=== PATIENT | male | born 1970 | race Caucasian/White ===

== ENCOUNTER 2016-07-05 11:31 | Emergency (ER) | payer MEDICAID ==
[2016-07-05 12:23] LABS: ALBUMIN 3.9 g/dL (3.4-5.0); ALKALINE PHOSPHATASE 81 U/L (46-116); ALT (SGPT) 436 U/L (10-68); BILIRUBIN - TOTAL 1.25 mg/dL (0.2-1.3); CALC OSMOLALITY 287 mosm/kg (275-300); CALCIUM 8.4 mg/dL (8.5-10.1); CARBON DIOXIDE 31.1 mmol/L (21.0-32.0); CHLORIDE - SERUM 105 mmol/L (98-107); GLUCOSE 138 mg/dL (74-106); POTASSIUM - SERUM 3.6 mmol/L (3.5-5.1); PROTEIN - SERUM 7.7 g/dL (6.4-8.2); SODIUM 144 mmol/L (136-145); UREA NITROGEN 9 mg/dL (7-18); eGFR NON AFRICAN AMERICAN 85 mL/min (90-120)
[2016-07-05 12:25] LABS: BASOPHILS 0.2 % (0.0-2.0); EOSINOPHILS 0.8 % (0-7); HEMATOCRIT 44.9 % (42.0-54.0); HEMOGLOBIN 15.3 g/dL (13.5-17.5); IMMATURE GRANULOCYTES 0.4 % (0-5); MCHC 34.1 g/dL (31.0-37.0); MONOCYTES 10.5 % (2-11); NEUTROPHILS 45.1 % (40-80); PLATELET COUNT 205 10x3/uL (130-400); RBC 4.63 10x6/uL (4.20-6.10); RDW 15.2 % (11.5-14.5); WBC 4.9 10x3/uL (4.8-10.8)
[2016-07-05 13:03] LABS: APPEARANCE CLEAR (CLEAR); BILIRUBIN NEGATIVE (NEGATIVE); COLOR YELLOW (YELLOW); GLUCOSE NEGATIVE (NEGATIVE); KETONE NEGATIVE (NEGATIVE); LEUKOCYTE ESTERASE NEGATIVE (NEGATIVE); NITRITE NEGATIVE (NEGATIVE); PROTEIN NEGATIVE (NEGATIVE); UROBILINOGEN NORMAL (NORMAL)
[2016-07-05 13:12] LABS: UDS - AMPHET NEGATIVE QUAL (NEGATIVE); UDS - BARB NEGATIVE QUAL (NEGATIVE); UDS - BENZO NEGATIVE QUAL (NEGATIVE); UDS - COCAINE NEGATIVE QUAL (NEGATIVE); UDS - METH NEGATIVE QUAL (NEGATIVE); UDS - OPIATE NEGATIVE QUAL (NEGATIVE); UDS - PCP NEGATIVE QUAL (NEGATIVE); UDS - THC NEGATIVE QUAL (NEGATIVE)
[2016-09-24 09:36] VITALS: BMI 32.9
== END 2016-07-05 16:39 | disposition home or self-care (01) ==
LOC: D.ER 11:31
PROVIDERS: Emergency Medicine
DX: F32.9 Major depressive disorder, single episode, unspecified (principal); F10.129 Alcohol abuse with intoxication, unspecified; F12.10 Cannabis abuse, uncomplicated; F17.200 Nicotine dependence, unspecified, uncomplicated

== ENCOUNTER 2016-07-30 17:15 | Emergency (ER) | payer MEDICAID ==
[2016-07-30 18:11] LABS: BASOPHILS 0.2 % (0.0-2.0); EOSINOPHILS 0.2 % (0-7); HEMATOCRIT 45.1 % (42.0-54.0); HEMOGLOBIN 15.3 g/dL (13.5-17.5); IMMATURE GRANULOCYTES 0.2 % (0-5); LYMPHOCYTES 35.6 % (15-50); MCHC 33.9 g/dL (31.0-37.0); MCV 97.4 fL (80.0-100.0); MEAN PLATELET VOLUME 10.3 fL (7.4-10.4); MONOCYTES 8.1 % (2-11); NEUTROPHILS 55.7 % (40-80); RBC 4.63 10x6/uL (4.20-6.10); RDW 14.9 % (11.5-14.5); WBC 5.2 10x3/uL (4.8-10.8)
[2016-07-30 18:13] LABS: PLATELET COUNT 119 10x3/uL (130-400)
[2016-07-30 18:28] LABS: ALBUMIN 4.1 g/dL (3.4-5.0); ALKALINE PHOSPHATASE 73 U/L (46-116); ALT (SGPT) 202 U/L (10-68); BILIRUBIN - TOTAL 0.83 mg/dL (0.2-1.3); CALC OSMOLALITY 290 mosm/kg (275-300); CARBON DIOXIDE 29.1 mmol/L (21.0-32.0); CHLORIDE - SERUM 103 mmol/L (98-107); CREATININE - SERUM 1.1 mg/dL (0.6-1.3); GLUCOSE 114 mg/dL (74-106); POTASSIUM - SERUM 3.5 mmol/L (3.5-5.1); PROTEIN - SERUM 7.4 g/dL (6.4-8.2); SODIUM 146 mmol/L (136-145); UREA NITROGEN 10 mg/dL (7-18); eGFR NON AFRICAN AMERICAN 76 mL/min (90-120)
[2016-07-30 18:30] LABS: MAGNESIUM - SERUM 1.8 mg/dL (1.8-2.4)
[2016-07-30 18:44] LABS: INR 1.11 (0.85-1.17); PROTIME 14.1 SECONDS (11.6-15.0)
[2016-09-24 09:36] VITALS: BMI 32.9
== END 2016-07-31 05:52 | disposition home or self-care (01) ==
LOC: D.ER 17:15
PROVIDERS: Emergency Medicine
DX: F10.10 Alcohol abuse, uncomplicated (principal)

== ENCOUNTER 2016-09-22 13:18 | Inpatient (IN) | payer MEDICAID ==
[~2016-09-22] VITALS: Ht 170.2 cm; Wt 97.3 kg
[2016-09-22 13:36] LABS: UDS - AMPHET NEGATIVE QUAL (NEGATIVE); UDS - BARB NEGATIVE QUAL (NEGATIVE); UDS - BENZO POSITIVE QUAL (NEGATIVE); UDS - COCAINE NEGATIVE QUAL (NEGATIVE); UDS - METH NEGATIVE QUAL (NEGATIVE); UDS - OPIATE NEGATIVE QUAL (NEGATIVE); UDS - PCP NEGATIVE QUAL (NEGATIVE); UDS - THC NEGATIVE QUAL (NEGATIVE)
[2016-09-22 13:50] LABS: BASOPHILS 0 % (0.0-2.0); EOSINOPHILS 0 % (0-7); HEMATOCRIT 53.6 % (42.0-54.0); HEMOGLOBIN 18.8 g/dL (13.5-17.5); IMMATURE GRANULOCYTES 0.3 % (0-5); MCH 34.9 pg (26.0-34.0); MCHC 35.1 g/dL (31.0-37.0); MCV 99.4 fL (80.0-100.0); MONOCYTES 6.8 % (2-11); NEUTROPHILS 86.9 % (40-80); RBC 5.39 10x6/uL (4.20-6.10); RDW 14.2 % (11.5-14.5); WBC 11.5 10x3/uL (4.8-10.8)
[2016-09-22 13:51] LABS: PLATELET COUNT 243 10x3/uL (130-400)
[2016-09-22 14:08] LABS: ALBUMIN 3.5 g/dL (3.4-5.0); ANION GAP 27.5 mmol/L (8-16); BILIRUBIN - TOTAL 1.28 mg/dL (0.2-1.3); CALCIUM 8.6 mg/dL (8.5-10.1); CARBON DIOXIDE 19.6 mmol/L (21.0-32.0); CREATININE - SERUM 1.8 mg/dL (0.6-1.3); MAGNESIUM - SERUM 1.9 mg/dL (1.8-2.4); POTASSIUM - SERUM 5.1 mmol/L (3.5-5.1)
[2016-09-22 14:30] LABS: APPEARANCE SLT CLOUDY (CLEAR); BACTERIA FEW /hpf (NONE SEEN); BILIRUBIN NEGATIVE (NEGATIVE); COLOR BROWN (YELLOW); EPITHELIAL CELLS 0-5 /hpf (0-5); GLUCOSE NEGATIVE (NEGATIVE); KETONE NEGATIVE (NEGATIVE); LEUKOCYTE ESTERASE TRACE (NEGATIVE); MUCUS <1+ /lpf (NONE SEEN); NITRITE NEGATIVE (NEGATIVE); PROTEIN 3+ mg/dL (NEGATIVE); SPECIFIC GRAVITY 1.025 (1.005-1.020); WHITE CELLS - URINE OCC /hpf (0-5)
--- NOTE | 2016-09-22 16:52 | NUR ---
RECEIVED TO [facility] ROOM 2. HE IS AWAKE AND ALERT, WATCHING TV. DENIES NEEDS. VSS
--- NOTE | 2016-09-22 17:14 | NUR ---
PATIENT OFF THE FLOOR TO MEDICAL IMAGING.
[2016-09-22 17:58] LABS: TROPONIN-I 0.035 ng/mL (0.000-0.060)
[2016-09-22 18:00] LABS: CKMB 729.6 U/L (0.0-3.6)
[2016-09-23] VITALS (16 sets, daily range): BP systolic 95–144; BP diastolic 48–101; BMI 31.4
[2016-09-23 00:10] LABS: TROPONIN-I 0.053 ng/mL (0.000-0.060)
[2016-09-23 01:35] LABS: CKMB 439.8 U/L (0.0-3.6); CREATINE KINASE 70933 UL (21-232)
[2016-09-23 02:11] LABS: CREATINE KINASE 97845 UL (21-232)
[2016-09-23 04:22] LABS: BASOPHILS 0.1 % (0.0-2.0); EOSINOPHILS 0 % (0-7); HEMATOCRIT 43.4 % (42.0-54.0); IMMATURE GRANULOCYTES 0.3 % (0-5); LYMPHOCYTES 16.2 % (15-50); MCH 33.3 pg (26.0-34.0); MCHC 33.9 g/dL (31.0-37.0); MCV 98.4 fL (80.0-100.0); MEAN PLATELET VOLUME 10.1 fL (7.4-10.4); MONOCYTES 9.3 % (2-11); NEUTROPHILS 74.1 % (40-80); RBC 4.41 10x6/uL (4.20-6.10); RDW 14.2 % (11.5-14.5); WBC 9.5 10x3/uL (4.8-10.8)
[2016-09-23 04:40] LABS: HEMOGLOBIN 14.7 g/dL (13.5-17.5); PLATELET COUNT 144 10x3/uL (130-400)
[2016-09-23 04:42] LABS: APTT 28.9 SECONDS (22.8-39.4); INR 1.11 (0.85-1.17); PROTIME 14.1 SECONDS (11.6-15.0)
[2016-09-23 05:04] LABS: ALKALINE PHOSPHATASE 74 U/L (46-116); ALT (SGPT) 474 U/L (10-68); BILIRUBIN - TOTAL 1.77 mg/dL (0.2-1.3); CHLORIDE - SERUM 99 mmol/L (98-107); CKMB 251.5 U/L (0.0-3.6); PROTEIN - SERUM 6.1 g/dL (6.4-8.2); SODIUM 136 mmol/L (136-145); TROPONIN-I 0.047 ng/mL (0.000-0.060); eGFR NON AFRICAN AMERICAN 38 mL/min (90-120)
[2016-09-23 05:10] LABS: ALBUMIN 2.6 g/dL (3.4-5.0); CALC OSMOLALITY 277 mosm/kg (275-300); CARBON DIOXIDE 25.3 mmol/L (21.0-32.0); CREATINE KINASE 57241 UL (21-232); GLUCOSE 123 mg/dL (74-106); POTASSIUM - SERUM 4.2 mmol/L (3.5-5.1); UREA NITROGEN 26 mg/dL (7-18)
--- NOTE | 2016-09-23 09:18 | NUR ---
Received patient from ER via stretcher. Patient self transferred to bed. Patient currently having tremors, states pain is an 8/10 bilateral legs. He states he can move his legs which is better than the past few days but that his feet feel like jello. Sinus rhythm rate of 88 on CM, afebrile, BP elevated. 99% on room air. When asked about his suicidal statement made with ERNIE Moyer, he stated that he did state he wanted to . I asked if he currently felt like that and he said yes. When asked why, he stated life in general and the pain. I asked if he wasnt in pain would he still want to and he stated he didnt know. Patient denies ever attempting suicide in the past. Denies currently having a plan for suicide. I requested patient to make a verbal contract with me that he will not attempt suicide while here in the hospital. Patient stated "I will not try to harm myself while here". Dominga Cintron RN in room and witnessed. Patient set up with call button, oriented to room and ICU. Informed that he is on suicidal precautions and that he cannot have his belongings in his room, he verbalized understanding. Breakfast tray delivered, silverware removed from tray. Patient set up with tray. Requesting Librium. Working with admissions to have him listed as inpatient instead of observation.
--- NOTE | 2016-09-23 09:31 | NUR ---
Spoke to in unit. Patient okayed for tramadol for pain, Librium q 1hour order verified. Psych consult okayed.
--- NOTE | 2016-09-23 11:09 | NUR ---
Is the patient Alert and Oriented? Yes 0 * PCP DOES NOT HAVE ONE 0 * Pharmacy HAS GOTTEN MEDS AT [facility] IN [place] IN THE PAST 0 * Preadmission Environment Homeless 0 * ADLs Independent 0 * List name and contact numbers for known caregivers / representatives who currently or will assist patient after discharge: MOTHER: RICHIE AGUERO DOES NOT KNOW PHONE NUMBER 0 * Additional services required to return to the preadmission environment? Yes 0 * Can the patient safely return to the preadmission environment? No 0 * Has this patient been hospitalized within the prior 30 days at any hospital? No PATIENT [place]. HE IS HOMELESS AND DOES NOT HAVE A JOB. PATIENT STATES HE DOES NOT HAVE A PCP. HE HAS GOTTEN MEDICATION AT [facility] IN [place] IN THE PAST WITH FAMILY HELP. PATIENT STATES HIS MOTHER IS RICHIE AGUERO AND LIVES IN [place] BUT HE DOES NOT KNOW HER PHONE NUMBER. HE HAS NOT TALKED TO HER IN A LONG TIME. PATIENT DENIES EVER HAVING HOME HEALTH. HE DENIES USE OF ANY EQUIPMENT. PATIENT STATES HE IS STILL HAVING THOUGHTS OF HURTING HIMSELF. HE STATES THAT HE CAN SOMETIMES STAY AT THE [facility] [place] BUT ONLY 10 DAYS PER MONTH. HE DOES GET MEALS AT THE [facility] [employer] AND [facility]. PATIENT DENIES EVER BEING IN A PSYCH FACILITY. CM TO FOLLOW TO FIND PLACEMENT AT DISCHARGE.
--- NOTE | 2016-09-23 11:26 | NUR ---
Patient had complete bath while up to bedside commode. Paper scrubs given to patient. Patient c/o severe pain bilateral feet. Socks removed, feet are swollen, discolored and patient unable to bear weight on them. Patient assited back to bed. Set up with call light. Dr.Carrington oscar and informed of patients feed and need for pain medication. Pain medication and bilateral venous study ordered. Pain medication administered per order.
--- NOTE | 2016-09-23 11:29 | NUR ---
Gillian with US here to do study.
--- NOTE | 2016-09-23 14:43 | NUR ---
Patient requested next dose of Librium and pain medication, administered per EMAR.
--- NOTE | 2016-09-23 15:30 | NUR ---
Patient becoming increasinly anxious, remains cooperative.
--- NOTE | 2016-09-23 17:08 | NUR ---
Pagesammie Moyer APRN regarding patient becoming increasinly aggitated and anxious. No new orders received.
--- NOTE | 2016-09-23 18:53 | NUR ---
Patient sleeping at this time.
--- NOTE | 2016-09-23 19:00 | NUR ---
REPORT RECEIVED AND ASSESSMENT COMPLETED. SEE FLOWSHEET FOR FULL DETIALS. PT HAS SUICIDAL IDEATION. NO PLAN TO HARM SELF AT THE MOMENT. MADE VERBAL CONTRACT TO AVOID SELF HARM THROUGH SHIFT WITNESSED BY MYSELF AND HILARY. PT HAS BILAT DVT. PULSES EASILY HEARD WITH DOPPLER. PT STATES HE IS AN ALCOHOLIC AND DRINKS A 5TH OF VODKA A DAY. HAS TREMORS IN UPPER EXTREMETIES. VSS. WILL CONTINUE TO MONITOR
--- NOTE | 2016-09-23 21:00 | NUR ---
2100 B/P MED HELD. DURING INITIAL ADMINISTRATION BP WAS 160'S SYSTOLIC. HAS BEEN IN LOW 100'S AND REMAINS THERE NOW. PT STATES HE IS BEGINNING TO SEE IMAGES SCROLLING ACROSS THE WALL. VSS. WILL CONTINUE TO MONITOR.
--- NOTE | 2016-09-23 23:21 | NUR ---
REASSESSMENT COMPLETED. SEE FLOWSHEET FOR FULL DETAILS. VAA. WILL CONTINUE TO MONITOR.
[2016-09-24] VITALS (24 sets, daily range): BP systolic 97–135; BP diastolic 60–101; Ht 170.2 cm; Wt 97.3 kg
--- NOTE | 2016-09-24 01:21 | NUR ---
PT STATES HALLUCINATIONS HAVE NOT GOTTEN WORSE. DESCIBED IT IMAGES OF ANIMALS IN ROOM. NO CHANGES AT THIS TIME. VSS. WILL CONTINUE TO MONITOR
--- NOTE | 2016-09-24 02:59 | NUR ---
REASSESSMENT COMPLETED. PT URINE NO LONGER COLA COLORED. NOW YELLOW. PT STILL HALLUCINATING. NO OTHER CHANGES AT THIS TIME. VSS. WILL CONTINUE TO MONITOR.
[2016-09-24 04:52] LABS: BASOPHILS 0 % (0.0-2.0); EOSINOPHILS 0.3 % (0-7); HEMATOCRIT 38.4 % (42.0-54.0); HEMOGLOBIN 13.1 g/dL (13.5-17.5); IMMATURE GRANULOCYTES 0.2 % (0-5); LYMPHOCYTES 19.3 % (15-50); MCH 33.5 pg (26.0-34.0); MCHC 34.1 g/dL (31.0-37.0); MCV 98.2 fL (80.0-100.0); MEAN PLATELET VOLUME 10.2 fL (7.4-10.4); MONOCYTES 6.7 % (2-11); NEUTROPHILS 73.5 % (40-80); RBC 3.91 10x6/uL (4.20-6.10); RDW 14.2 % (11.5-14.5); WBC 8.8 10x3/uL (4.8-10.8)
[2016-09-24 04:57] LABS: PLATELET COUNT 108 10x3/uL (130-400)
--- NOTE | 2016-09-24 05:00 | NUR ---
NO CHANGED IN STATUS AT THIS TIME. VSS. WILL CONTINUE TO MONITOR
[2016-09-24 05:23] LABS: APTT 45.8 SECONDS (22.8-39.4); INR 1.56 (0.85-1.17); PROTIME 18.6 SECONDS (11.6-15.0)
[2016-09-24 05:29] LABS: ALBUMIN 2.4 g/dL (3.4-5.0); ALKALINE PHOSPHATASE 64 U/L (46-116); ALT (SGPT) 372 U/L (10-68); C-REACTIVE PROTEIN 9.2 mg/dL (0.0-0.9); CALC OSMOLALITY 270 mosm/kg (275-300); CALCIUM 7.7 mg/dL (8.5-10.1); CARBON DIOXIDE 24.6 mmol/L (21.0-32.0); CHLORIDE - SERUM 98 mmol/L (98-107); CREATININE - SERUM 2.5 mg/dL (0.6-1.3); GLUCOSE 90 mg/dL (74-106); PROTEIN - SERUM 5.7 g/dL (6.4-8.2); SODIUM 132 mmol/L (136-145); TROPONIN-I < 0.017 ng/mL (0.000-0.060); UREA NITROGEN 30 mg/dL (7-18); eGFR NON AFRICAN AMERICAN 30 mL/min (90-120)
[2016-09-24 05:38] LABS: CREATINE KINASE 21490 UL (21-232); POTASSIUM - SERUM 3.3 mmol/L (3.5-5.1)
[2016-09-24 09:17] LABS: HEPATITIS C ANTIBODY <0.1 (0.0-0.9)
--- NOTE | 2016-09-24 19:30 | NUR ---
Assessment complete. See flowsheet. Pt resting quietly, self-positioned to left side with no s/s pain or distress. Pt awakens easily to verbal stimulation with no neuro deficits noted. Respirations even and unlabored. HR SR. Pupils size 3 bilaterally ERRLA. Lung sounds clear to auscultation. All peripheral pulses +2 with capillary refill <3 seconds. Lower extremities bilaterally +2 pitting edema and tender to touch. Left A/C PIV site CDI no s/s infection or infiltration with MVI infusing @ 125cc/hr and completed. IV saline locked. BS present to all quadrants. Urinal within pt reach. Pt denies needs at this time and continues to rest. Call light and bedside table within pt reach. CPOC.
--- NOTE | 2016-09-24 21:30 | NUR ---
Pt resting quietly with VSS. No s/s pain or distress and allowed to continue resting undisturbed. Call light and bedside table remain within reach. CPOC.
--- NOTE | 2016-09-24 22:23 | NUR ---
Pt urinals emptied of 900cc clear/yellow urine. Fresh ice water provided. Librium and ultram provided per request for pain "all over" rated 6 out of 10. See MAR. Pt continues to self-position for comfort. VSS. Pt denies further needs at this time. Arms and heels bridged. Call light and bedside table remain within pt reach. CPOC.
--- NOTE | 2016-09-24 23:30 | NUR ---
Reassessment complete. See flowsheet. Pt awake and watching television with VSS. NO c/o pain or distress. O2 RA. Lung sounds remain clear to all houser. HR SR with S1S2 auscultated. All peripheral pulses +2 with capillary refill <3 seconds. Lower extremity edema persists. Pt c/o pain to touch. PIV site CDI saline locked. BS +. Urinal remains within pt reach. Pt denies current needs at this time and continues to self-position for comfort. Call light and bedside table remain within pt reach. CPOC.
[2016-09-25] VITALS (23 sets, daily range): BP systolic 102–148; BP diastolic 55–100
--- NOTE | 2016-09-25 01:20 | NUR ---
Urinals emptied of 1200cc clear/yellow urine. Fresh ice water provided per request. Librium administered for pt c/o tremors. See MAR. Call light and bedside table remain within pt reach. CPOC.
--- NOTE | 2016-09-25 01:56 | NUR ---
Pt resting quietly with VSS. NO s/s pain or distress. call light and bedside table remain within pt reach. CPOC.
--- NOTE | 2016-09-25 03:30 | NUR ---
Reassessment complete. See flowsheet. Pt continues to self-position for comfort with no neuro changes to note. Pt denies pain at this time or further needs. NO changes to note. Call light and bedside table remain within pt reach. CPOC.
--- NOTE | 2016-09-25 05:30 | NUR ---
Urinals emptied of 1600cc clear, yellow urine. Pt provided with ice water per request.
[2016-09-25 05:48] LABS: BASOPHILS 0.1 % (0.0-2.0); EOSINOPHILS 0.6 % (0-7); HEMATOCRIT 36.7 % (42.0-54.0); HEMOGLOBIN 12.5 g/dL (13.5-17.5); IMMATURE GRANULOCYTES 0.2 % (0-5); LYMPHOCYTES 14.8 % (15-50); MCH 33.6 pg (26.0-34.0); MCHC 34.1 g/dL (31.0-37.0); MCV 98.7 fL (80.0-100.0); MEAN PLATELET VOLUME 10.6 fL (7.4-10.4); MONOCYTES 4.9 % (2-11); NEUTROPHILS 79.4 % (40-80); PLATELET COUNT 115 10x3/uL (130-400); RBC 3.72 10x6/uL (4.20-6.10); RDW 14.2 % (11.5-14.5); WBC 8.9 10x3/uL (4.8-10.8)
[2016-09-25 06:02] LABS: INR 1.54 (0.85-1.17); PROTIME 18.4 SECONDS (11.6-15.0)
[2016-09-25 06:03] LABS: APTT 53.8 SECONDS (22.8-39.4)
[2016-09-25 06:18] LABS: ALBUMIN 2.3 g/dL (3.4-5.0); ALKALINE PHOSPHATASE 58 U/L (46-116); ALT (SGPT) 302 U/L (10-68); CALC OSMOLALITY 276 mosm/kg (275-300); CALCIUM 7.8 mg/dL (8.5-10.1); CHLORIDE - SERUM 102 mmol/L (98-107); CKMB 13.2 U/L (0.0-3.6); GLUCOSE 85 mg/dL (74-106); POTASSIUM - SERUM 3.5 mmol/L (3.5-5.1); PROTEIN - SERUM 5.7 g/dL (6.4-8.2); SODIUM 137 mmol/L (136-145); UREA NITROGEN 23 mg/dL (7-18); eGFR NON AFRICAN AMERICAN 38 mL/min (90-120)
[2016-09-25 06:19] LABS: CREATINE KINASE 14879 UL (21-232)
--- NOTE | 2016-09-25 09:42 | CN ---
PATIENT NAME:SARAH AGUERO MEDICAL RECORD: [id number] : 68 LOCATION:[id number] ADMIT DATE: 09/23/16 ACCOUNT: [id number] CONSULTING PHYSICIAN: PRAVEENA SORTO III, MD REFERRING PHYSICIAN: MARSHA CONKLIN MD DATE OF CONSULTATION: 09/23/2016 FINDINGS: One of several lifetime psychiatric contacts for this 45-year-old white male. This patient carries a past history of major depressive disorder and alcohol abuse. He states that lately he has been drinking up to a fifth of vodka per day. He has chronic pain. He has a past history of HIV. The patient took an unknown quantity of pills he obtained from a friend in a suicide attempt. MENTAL STATUS: The patient admits to ongoing suicidal ideation and is equivocal about his own safety. On exam, the patient's mood is dysphoric. Affect is rather constricted. Speech is fairly fluent. Content of thought is positive for suicidal ideation. Sensorium relatively clear. The patient is currently undergoing withdrawal and receiving active treatment for this. DIAGNOSIS: Major depressive disorder -- recurrent, alcoholism. PLAN: When the patient is stable medically, would refer for inpatient psychiatric treatment. TRANSINT:[id number] Voice Confirmation ID: [id number] DOCUMENT ID: [id number] PRAVEENA SORTO III, MD at 0942 CC: [id number] DICTATION DATE: 09/23/16 1254 MECHANICAL ENGINEERING TEACHER: 09/23/16 1448 ADM IN [facility] [address] [place] [address]
--- NOTE | 2016-09-25 19:30 | NUR ---
Assessment complete. See flowsheet. Pt awake and watching television with VSS. Pt c/o pain to legs bilaterally. +1 pitting edema to lower extremities bilaterally with pain during movement. Dorsalis pedis pulses +2 bilaterally. Pt respirations even and unlabored. O2 RA. No neuro deficits noted. Pt calm and cooperative and moving upper extremities with 5/5 strength and lower extremities wih 4/5 strength. Lung sounds CTA. HR SR with S1S2 auscultated. Radial pulses +2 bilaterally. Left A/C PIV CDI no s/s infection or infiltration with MVI infusion finished and removed. PIV site saline locked. BS + to all quadrants. Urinal emptied of 900cc clear/yellow urine. Fresh ice water provided per pt request. Librium and Ultram given; see MAR. Pt self-positioned in bed for comfort. Temp 99.1F orally. Arms and heels rebridged. Call light and bedside table remain within pt reach. CPOC.
--- NOTE | 2016-09-25 21:30 | NUR ---
Pt resting with VSS. NO s/s pain or distress. Call light and bedside table remain within pt reach. CPOC.
--- NOTE | 2016-09-25 23:30 | NUR ---
Reassessment complete. See flowsheet. Pt resting and awakens easily to verbal stimulation with no neuro deficits to note. O2 RA. Lung sounds remain clear to auscultation. HR SR with S1S2 auscultated. All peripheral pulses +2 with cpaillary refill <3 seconds. PIV site remains CDI; saline locked with no s/s infection and IV site secure. BS +. Urinals within pt reach. Beverages on bedside table. Pt continues to self-position for comfort. No complaints or requests at this time. Call light and bedside table remain within pt reach. CPOC.
[2016-09-26] VITALS (14 sets, daily range): BP systolic 101–152; BP diastolic 47–100
--- NOTE | 2016-09-26 01:30 | NUR ---
Pt resting quietly with VSS. NO s/s pain or distress and allowed to continue resting undisturbed. Call light and bedside table remain within pt reach. CPOC.
--- NOTE | 2016-09-26 03:30 | NUR ---
Reassessment complete. See flowsheet. Urinals emptied of urine. Pt helped up with max assist to bedside toilet for large, brown BM approx 700cc. Linen change and pt self-bath completed. pt helped back to bed to self-position for comfort. No other changes to note. Fresh ice water provided. Pain medication administered. See MAR> Call light and bedside table placed within pt reach. CPOC.
--- NOTE | 2016-09-26 05:30 | NUR ---
Pt resting with VSS. Call light and bedside table remain within reach. CPOC.
[2016-09-26 05:52] LABS: BASOPHILS 0.2 % (0.0-2.0); EOSINOPHILS 1.3 % (0-7); HEMATOCRIT 39.7 % (42.0-54.0); HEMOGLOBIN 13.6 g/dL (13.5-17.5); IMMATURE GRANULOCYTES 0.5 % (0-5); LYMPHOCYTES 12.6 % (15-50); MCH 33.7 pg (26.0-34.0); MCHC 34.3 g/dL (31.0-37.0); MCV 98.5 fL (80.0-100.0); MEAN PLATELET VOLUME 10.3 fL (7.4-10.4); MONOCYTES 6.6 % (2-11); NEUTROPHILS 78.8 % (40-80); RBC 4.03 10x6/uL (4.20-6.10); RDW 14.3 % (11.5-14.5); WBC 10.9 10x3/uL (4.8-10.8)
[2016-09-26 05:54] LABS: INR 1.64 (0.85-1.17); PROTIME 19.4 SECONDS (11.6-15.0)
[2016-09-26 05:56] LABS: APTT 39.4 SECONDS (22.8-39.4); PLATELET COUNT 150 10x3/uL (130-400)
[2016-09-26 06:04] LABS: ALBUMIN 2.3 g/dL (3.4-5.0); ALKALINE PHOSPHATASE 56 U/L (46-116); ALT (SGPT) 271 U/L (10-68); BILIRUBIN - TOTAL 1.48 mg/dL (0.2-1.3); CALC OSMOLALITY 275 mosm/kg (275-300); CALCIUM 8.1 mg/dL (8.5-10.1); CARBON DIOXIDE 26.8 mmol/L (21.0-32.0); CHLORIDE - SERUM 102 mmol/L (98-107); CKMB 5.2 U/L (0.0-3.6); CREATININE - SERUM 1.6 mg/dL (0.6-1.3); GLUCOSE 97 mg/dL (74-106); POTASSIUM - SERUM 3.3 mmol/L (3.5-5.1); PROTEIN - SERUM 5.8 g/dL (6.4-8.2); SODIUM 137 mmol/L (136-145); UREA NITROGEN 18 mg/dL (7-18); eGFR NON AFRICAN AMERICAN 50 mL/min (90-120)
[2016-09-26 06:07] LABS: CREATINE KINASE 12138 UL (21-232); TROPONIN-I 0.017 ng/mL (0.000-0.060)
--- NOTE | 2016-09-26 11:00 | NUR ---
NO CHANGE NOTED
--- NOTE | 2016-09-26 15:00 | NUR ---
NO CHANGE NOTED
--- NOTE | 2016-09-26 19:45 | NUR ---
ASSESSMENT COMPLETE. S1S2. RR CLEAR; EQUAL NON LABORED. AAO. PT STATES STILL HAVING THOUGHTS ABOUT HARMING SELF; STATING IT IS BOTH RELATIONSHIP AND FINANCIAL AND FEELING ALONE. OFFERED TO TALK WITH PATIENT; REFUSED. SWELLING B/L TO LOWER EXTREMITIES; PT C/O PAIN. RADIAL AND PEDAL PULSES PALPATED. PERRLA. NSR SHOWING ON MONITOR. NO DISTRESS NOTED. PAPER GOWN IN PLACE. SALINE LOCK LEFT AC PIV. VSS. WILL CONTINUE TO MONITOR.
--- NOTE | 2016-09-26 20:12 | NUR ---
PT C/O OF PAIN IN LEGS AND BACK. C/O SWELLING IN LEGS. PEDAL PULSES +2. ULTRAM GIVEN PER ORDERS. SEE EMAR FOR DETAILS.
--- NOTE | 2016-09-26 23:15 | NUR ---
REASSESSMENT COMPLETE. NO CHANGES FROM PREVIOUS ASSESSMENT. CALL LIGHT IN REACH. VSS. NO DISTRESS NOTED. WILL CONTINUE TO MONITOR.
[2016-09-27 01:00] VITALS: BP 153/78
--- NOTE | 2016-09-27 01:15 | NUR ---
PT C/O PAIN IN LEGS AND BACK. ULTRAM GIVEN AND LIBRIUM GIVEN PER ORDERS. SEE EMAR FOR DETAILS. PEDAL PULSES PALPATED.
[2016-09-27 03:00] VITALS: BP 112/70
--- NOTE | 2016-09-27 03:05 | NUR ---
REASSESSMENT COMPLETE. NO CHANGES FROM PREVIOUS ASSESSMENT. SEE FLOW SHEET FOR DETAILS.
[2016-09-27 04:01] LABS: BASOPHILS 0.3 % (0.0-2.0); EOSINOPHILS 3.1 % (0-7); HEMATOCRIT 37.1 % (42.0-54.0); HEMOGLOBIN 12.6 g/dL (13.5-17.5); IMMATURE GRANULOCYTES 0.7 % (0-5); LYMPHOCYTES 21.1 % (15-50); MCH 33.3 pg (26.0-34.0); MCV 98.1 fL (80.0-100.0); MONOCYTES 12.5 % (2-11); NEUTROPHILS 62.3 % (40-80); PLATELET COUNT 163 10x3/uL (130-400); RBC 3.78 10x6/uL (4.20-6.10); RDW 14.4 % (11.5-14.5)
[2016-09-27 04:18] LABS: WBC 7.7 10x3/uL (4.8-10.8)
[2016-09-27 04:19] LABS: APTT 38.9 SECONDS (22.8-39.4); INR 1.34 (0.85-1.17); PROTIME 16.5 SECONDS (11.6-15.0)
[2016-09-27 04:37] LABS: ALBUMIN 2.2 g/dL (3.4-5.0); ALKALINE PHOSPHATASE 46 U/L (46-116); ALT (SGPT) 231 U/L (10-68); BILIRUBIN - TOTAL 1.21 mg/dL (0.2-1.3); C-REACTIVE PROTEIN 4.4 mg/dL (0.0-0.9); CALC OSMOLALITY 276 mosm/kg (275-300); CALCIUM 7.9 mg/dL (8.5-10.1); CHLORIDE - SERUM 102 mmol/L (98-107); CKMB 3.6 U/L (0.0-3.6); CREATINE KINASE 7694 UL (21-232); CREATININE - SERUM 1.3 mg/dL (0.6-1.3); GLUCOSE 104 mg/dL (74-106); POTASSIUM - SERUM 3.2 mmol/L (3.5-5.1); PROTEIN - SERUM 5.5 g/dL (6.4-8.2); SODIUM 138 mmol/L (136-145); UREA NITROGEN 15 mg/dL (7-18); eGFR NON AFRICAN AMERICAN 63 mL/min (90-120)
[2016-09-27 07:00] VITALS: BP 122/78
--- NOTE | 2016-09-27 09:12 | NUR ---
NUTRITION MONITORING & EVAL NURSING REPORTS PT WITH GOOD INTAKE REG DIET. RD FOLLOWING
[2016-09-27 18:21] VITALS: BP 97/59
[2016-09-27 19:00] VITALS: BP 97/59
--- NOTE | 2016-09-27 19:45 | NUR ---
ASSESSMENT COMPLETE. S1S2. AAO. SWELLING AND WEAKNESS NOTED TO LOWER EXTREMITIES. RR EQUAL NON LABORED. PT C/O PAIN 4/10 IN LEGS AND BACK. PT SITTING IN CHAIR. PT USES URINAL AND BEDSIDE COMMODE. PERRLA. LABELLING MACHINE OPERATOR STRENGTH EQUAL +5. FOLLOWS COMMANDS. VSS. NO DISTRESS NOTED. WILL CONTINUE TO MONITOR.
--- NOTE | 2016-09-27 21:30 | NUR ---
PT C/O PAIN 4/10 IN BACK AND LEGS. ULTRAM GIVEN PER ORDERS. SEE EMAR FOR DETAILS.
[2016-09-27 23:00] VITALS: BP 110/60
--- NOTE | 2016-09-27 23:15 | NUR ---
REASSESSMENT COMPLETE. NO CHANGES FROM PREVIOUS ASSESSMENT. CALL LIGHT IN REACH. PT IN BED; WATCHING TV. DENIES ANY NEEDS AT THIS TIME. WILL CONTINUE TO MONITOR.
[2016-09-28] VITALS (17 sets, daily range): BP systolic 94–119; BP diastolic 53–91
--- NOTE | 2016-09-28 01:10 | NUR ---
FLUSHED PIV RIGHT AC; PATENT.
--- NOTE | 2016-09-28 03:20 | NUR ---
REASSESSMENT COMPLETE. NO CHANGES FROM PREVIOUS ASSESSMENT. WILL CONTINUE TO MONITOR.
[2016-09-28 04:49] LABS: BASOPHILS 0.3 % (0.0-2.0); EOSINOPHILS 4.4 % (0-7); HEMATOCRIT 39.5 % (42.0-54.0); LYMPHOCYTES 28.9 % (15-50); MCH 32.7 pg (26.0-34.0); MCHC 32.9 g/dL (31.0-37.0); MCV 99.5 fL (80.0-100.0); MEAN PLATELET VOLUME 10.5 fL (7.4-10.4); MONOCYTES 12.9 % (2-11); NEUTROPHILS 52.5 % (40-80); RBC 3.97 10x6/uL (4.20-6.10); RDW 14.4 % (11.5-14.5); WBC 6.9 10x3/uL (4.8-10.8)
[2016-09-28 04:54] LABS: PLATELET COUNT 198 10x3/uL (130-400)
[2016-09-28 06:02] LABS: CALC OSMOLALITY 276 mosm/kg (275-300); CARBON DIOXIDE 31.3 mmol/L (21.0-32.0); CHLORIDE - SERUM 103 mmol/L (98-107); CKMB 2.5 U/L (0.0-3.6); CREATINE KINASE 4990 UL (21-232); CREATININE - SERUM 1.3 mg/dL (0.6-1.3); GLUCOSE 96 mg/dL (74-106); POTASSIUM - SERUM 3.2 mmol/L (3.5-5.1); SODIUM 138 mmol/L (136-145); UREA NITROGEN 14 mg/dL (7-18); eGFR NON AFRICAN AMERICAN 63 mL/min (90-120)
--- NOTE | 2016-09-28 11:49 | NUR ---
IV ACCESS-22 GAUGE INSERTED IN [place] FOR ACCESS. JENNIFER CORADO RN
--- NOTE | 2016-09-28 14:08 | NUR ---
0700 PT AWAKE ALERT AND ORIENTED X4, OBEYS COMMANDS WITH NO DEFICITS. PT COMPLAINTS OF PAIN "8/10" AT THIS TIME IN LEGS. WILL GIVE PRN MEDS ORDERED. NO SCDS ON PT DUE TO BILATERAL DVTS. NORMAL SINUS RHYTHM ON MONITOR. VITAL SIGNS STABLE.
--- NOTE | 2016-09-28 14:29 | NUR ---
0900 PT HAS POOR APPETITE AT THIS TIME AND STATES HE DOESNT FEEL LIKE EATING. COMPLAINS OF PAIN IN BILAT LOWER EXTREMITIES. NO FURTHER CHANGES
--- NOTE | 2016-09-28 14:30 | NUR ---
1100 NO CHANGES FROM PREVIOUS ASSESSMENT. VITAL SIGNS STABLE
--- NOTE | 2016-09-28 14:31 | NUR ---
1300 PT ASLEEP AT THIS TIME. WILL ALLOW PT TO REST. VITAL SIGNS STABLE
--- NOTE | 2016-09-28 15:02 | NUR ---
1500 OLD PIC INFILTRATED. NEW PIV SITED IN LEFT HAND. THIAMINE INFUSING. VITAL SIGNS STABLE
--- NOTE | 2016-09-28 17:37 | NUR ---
1700 PT RESTING AT THIS TIME. ENCOURAGED PT TO EAT AND HE STATES THAT HE WILL TRY TO IN A LITTLE WHILE BUT HE STILL FEELS NAUSEATED. HE STATED THAT HE DOESNT NEED ANYTHING FOR NAUSEA AT THIS TIME. POSSIBLY DUE TO WITHDRAWL. VITAL SIGNS STABLE.
--- NOTE | 2016-09-28 19:10 | NUR ---
ASSESSMENT COMPLETED. ALERT AND ORIENTED TO PERSON, PLACE AND TIME. LT HAND PIV, SITE WITHOUT REDNESS OR EDEMA WITH BANANNA BAG @ 125CC/HR VIA PUMP. SANDOR LOWER EXTREMITY 3+ EDEMA, UP ON PILLOWS. UP TO CHAIR. DENIES ANY PAIN OR NEEDS AT THIS TIME. SR ON THE MONITOR.
--- NOTE | 2016-09-28 20:20 | NUR ---
COMPLAINING OF LT ANKLE PAIN. SWELLING NOTED TO LOWER EXTREMITY BUT NOT CHANGED FROM PREVIOS EXAM. PPP. ULTRAM PO GIVEN PER ORDERS. WILL CONT TO MONITOR.
--- NOTE | 2016-09-28 23:00 | NUR ---
REASSESSMENT COMPLETED. UP IN CHAIR. DENIES ANY NEEDS.
--- NOTE | 2016-09-29 01:00 | NUR ---
UP IN CHAIR, EYES CLOSED, RESP EVEN AND UNLABORED. SR ON THE MONITOR.
[2016-09-29 03:00] VITALS: BP 119/43; BP 95/57
--- NOTE | 2016-09-29 03:00 | NUR ---
REASSESSMENT COMPLETED.
--- NOTE | 2016-09-29 05:12 | NUR ---
SR ON THE MONITOR.
[2016-09-29 07:00] VITALS: BP 110/65
--- NOTE | 2016-09-29 07:36 | NUR ---
REPORT RECD PT CARE ASSUMED. PT IS ALERT AND ORIENTED X 4. HR SR PER CM. BILAT SWELLING NOTED TO LOWER EXTREMITIES, SOME DISCOMFORT NOTED. PT SITTING UP IN CHAIR AT THIS TIME, VOICES NO NEEDS. VSS. BREAKFAST TRAY PROVIDED. WILL MONITOR.
--- NOTE | 2016-09-29 09:00 | NUR ---
PT NOW REPORTS THAT HE "FELL" EARLY THIS MORNING. THIS WAS NOT REPORTED TO THE NIGHT RN OR PASSED IN REPORT. NO BRUISING OR INJURY NOTED TO PT. PT WILL AMBUALTE WITH PT.
--- NOTE | 2016-09-29 09:53 | NUR ---
NUTRITION MONITORING & EVAL CHART REVIEWED, PT VISIT. PT STATES HE HAS NOT FELT LIKE EATING MUCH YESTERDAY OR THIS AM. WILL CONTINUE TO PROVIDE DIET, MONITOR PO INTAKE. RD FOLLOWING
--- NOTE | 2016-09-29 09:55 | NUR ---
PT REPOSITIONED. PT GRIMICES TO STIMULI. VSS. WILL MONITOR.
[2016-09-29 11:00] VITALS: BP 106/70
--- NOTE | 2016-09-29 12:00 | NUR ---
PT PROVIDED WITH LUNCH TRAY AT THIS TIME. PT RESTING WITH EYES CLOSED.
[2016-09-29 12:28] LABS: ALBUMIN 2.3 g/dL (3.4-5.0); ALKALINE PHOSPHATASE 39 U/L (46-116); ALT (SGPT) 161 U/L (10-68); BILIRUBIN - TOTAL 1.47 mg/dL (0.2-1.3); CALC OSMOLALITY 266 mosm/kg (275-300); CALCIUM 7.7 mg/dL (8.5-10.1); CARBON DIOXIDE 25.7 mmol/L (21.0-32.0); CHLORIDE - SERUM 100 mmol/L (98-107); CKMB 1.9 U/L (0.0-3.6); CREATINE KINASE 2283 UL (21-232); CREATININE - SERUM 1.3 mg/dL (0.6-1.3); GLUCOSE 107 mg/dL (74-106); PROTEIN - SERUM 5.6 g/dL (6.4-8.2); SODIUM 134 mmol/L (136-145); UREA NITROGEN 10 mg/dL (7-18); eGFR NON AFRICAN AMERICAN 63 mL/min (90-120)
--- NOTE | 2016-09-29 17:00 | NUR ---
PT UP WITH WALKER AMBULATING AROUND UNIT, DOING WELL. PT RETURNS TO CHAIR.
[2016-09-29 19:00] VITALS: BP 109/59
--- NOTE | 2016-09-29 21:27 | NUR ---
NO VISITORS AT THIS TIME, PT WATCHING TV, DENIES ANY WANTS OR NEEDS
[2016-09-29 23:00] VITALS: BP 102/55
--- NOTE | 2016-09-29 23:15 | NUR ---
REASSESSMENT COMPLETE, NO CHANGES NOTED, WILL CON'T TO MONITOR
[2016-09-30] VITALS (7 sets, daily range): BP systolic 91–106; BP diastolic 53–92
--- NOTE | 2016-09-30 01:22 | NUR ---
NO NEEDS NOTED AT THIS TIME, WILL CON'T TO MONITOR
--- NOTE | 2016-09-30 03:24 | NUR ---
REASSESSMENT COMPLETE, NO CHANGES NOTED, PT RESTING AT THIS TIME, WILL CON'T TO MONITOR
[2016-09-30 03:58] LABS: BASOPHILS 0.4 % (0.0-2.0); EOSINOPHILS 2.8 % (0-7); HEMATOCRIT 34.3 % (42.0-54.0); HEMOGLOBIN 11.7 g/dL (13.5-17.5); IMMATURE GRANULOCYTES 0.6 % (0-5); LYMPHOCYTES 30.9 % (15-50); MCH 33.1 pg (26.0-34.0); MCHC 34.1 g/dL (31.0-37.0); MEAN PLATELET VOLUME 9.7 fL (7.4-10.4); MONOCYTES 20.4 % (2-11); NEUTROPHILS 44.9 % (40-80); PLATELET COUNT 196 10x3/uL (130-400); RBC 3.53 10x6/uL (4.20-6.10); WBC 5.3 10x3/uL (4.8-10.8)
[2016-09-30 04:04] LABS: MCV 97.2 fL (80.0-100.0)
[2016-09-30 04:39] LABS: ALBUMIN 2.2 g/dL (3.4-5.0); ALKALINE PHOSPHATASE 35 U/L (46-116); ALT (SGPT) 149 U/L (10-68); BILIRUBIN - TOTAL 1.31 mg/dL (0.2-1.3); CALC OSMOLALITY 274 mosm/kg (275-300); CALCIUM 7.5 mg/dL (8.5-10.1); CARBON DIOXIDE 27.3 mmol/L (21.0-32.0); CHLORIDE - SERUM 103 mmol/L (98-107); CREATININE - SERUM 1.2 mg/dL (0.6-1.3); GLUCOSE 97 mg/dL (74-106); POTASSIUM - SERUM 3.2 mmol/L (3.5-5.1); PROTEIN - SERUM 5.3 g/dL (6.4-8.2); SODIUM 138 mmol/L (136-145); UREA NITROGEN 11 mg/dL (7-18); eGFR NON AFRICAN AMERICAN 69 mL/min (90-120)
[2016-09-30 04:46] LABS: CREATINE KINASE 1563 UL (21-232)
[2016-09-30 04:47] LABS: CKMB 2.6 U/L (0.0-3.6)
--- NOTE | 2016-09-30 07:00 | NUR ---
PT REPORT REC'D, PT CARE ASSUMED. PT AAOX4, SITTING UP IN CHAIR. PT C/O PAIN RATED 8/10 IN BILAT LEGS AND FEET. PT AMBULATES WITH WALKER. LEFT HAND PIV S/L, NO SIGNS OF INFILTRATION. LEFT PEDAL PULSE PALPABLE, RIGHT PEDAL PULSE DOPPLER. RIGHT LOWER EXTERMITY 3+ EDEMA. BEDSIDE URINAL NEEDED, BEDSIDE COMMODE NEEDED. SHIFT ASSESSMENT COMPLETED, SEE FLOW SHEET. ROOM FREE OF CLUTTER, CALL LGHT IN REACH, WILL CONTINUE TO MONITOR PT.
--- NOTE | 2016-09-30 09:49 | NUR ---
PHYSICAL THERAPY IN WITH PT, PT AMBULATING PT TOLERATED WELL. WILL CONTINUE TO MONITOR PT.
--- NOTE | 2016-09-30 12:00 | NUR ---
PT SITTING UP IN CHAIR, VSS, WILL CONTINUE TO MONITOR PT.
--- NOTE | 2016-09-30 12:13 | NUR ---
DR. TORRES STATES PATIENT IS READY FOR D/C TO IN PSYCH FACILITY. PATIENT DENIES SUICIDAL THOUGHTS. HE STATES, " I HAVE THOUGHT LOMG AND HARD AND DON'T WANT TO DO THAT." I CONTACTED [facility] AND THEY DO NOT HAVE ANY BEDS IN [facility]. I CONTACTED [facility] [phone] CALL CENTER AND WAS TOLD THEY DONOT HAVE ANY MALE BEDS. I CONTACED [place] AND THE FACT THAT THE PATIENT IS USING A WALKER DOES NOT MEET THEIR CRITERIA. I HAVE CONTACTED [facility], . THEIR INTAKE PERSON, MICHAEL, WAS AT [place] BUT I WAS ASKED TO FAX THE INFORMATION TO [phone] AND LEFT A VOICE MAIL FOR RETURN CALL. WILL AWAIT CALL BACK. CM TO FOLLOW.
--- NOTE | 2016-09-30 15:00 | NUR ---
PT RESTING WITH EYES CLOSED, WILL CONTINUE TO MONITOR PT.
--- NOTE | 2016-09-30 15:34 | NUR ---
RECEIVED CALL BACK FROM [facility]. I WAS TOLD THEY DONOT HAVE ANY BEDS. CM TO ATTEMPT PLACEMENT AGAIN TOMORROW.
--- NOTE | 2016-09-30 17:42 | NUR ---
PT C/O PAIN RATED 8/10, TRAMADOL GIVEN, PT STATES PAIN IS "ABOUT A 2". WILL CONTINUE TO MONITOR PT.
--- NOTE | 2016-09-30 19:44 | NUR ---
REPORT RECIEVED. ASSESSMENT COMPLETE PER FLOW SHEET. VSS. DENIES PAIN OR NEEDS. WILL CONTINUE TO MONITOR.
[2016-10-01 03:00] VITALS: BP 121/76
[2016-10-01 07:00] VITALS: BP 105/56
--- NOTE | 2016-10-01 07:00 | NUR ---
REPORT RECEIVED. ASSESSMENT COMPLETED. PATIENT C/O PAIN 02/10 TO BLE. WILL CHECK EMAR AND GIVE PAIN MEDICATIONS IF TIME. PATIENT IS QUESTIONING TO IF HE WILL BE DISCHARGED TO REHAB TODAY. EXPLAINED THAT THE CASEMANAGER IS IN REPORT SO I CAN'T GET THAT ANSWER RIGHT NOW. EXPLAINED THAT AFTER REPORT, I WOULD ASK. HE WAS OK WITH THIS.
--- NOTE | 2016-10-01 07:58 | NUR ---
JEWEL JOHNSON HAS CAME TO ME AND SAID THE PATIENT IS ASKING IF HE COULD JUST GO HOME AND SO OUTPATIENT THERAPY. HE SAID HE HAS A PREACHER FRIEND THAT HAS OFFERED HER PLACE FOR HIM TO STAY. PER ELIZABETH, HE SAID THAT HE IS NOT SUICIDAL. ELIZABETH IS TAKING A PHONE INTO THE ROOM SO HE CAN CALL THE PREACHER FRIEND AND SHE CAN TALK WITH HER AFTER THE PATIENT DOES. WILL WAIT TO SEE WHAT SHE SAYS.
--- NOTE | 2016-10-01 09:41 | NUR ---
PATIENT REMAINS IN ICU. HE STATES HE IS NOT LONGER WANTING TO HURT HIMSELF. HE IS QUESTIONING IF HE CAN GO TO COMMUNITY COUNSELING FOR ASSISTANCE INSTEAD OF INPATIENT. HE STATES HE HAS A PREACHER LADY THAT IS WILLING TO HELP HIM AT DISCHARGE. HE PLANS TO SPEAK WITH DR. TORRES WHEN SHE ROUNDS. I HAVE PLACED A CALL TO MAYA AMBROCIO AT [facility] TO GET INFORMATION ABOUT THE PROGRAM THEY HAVE FOR HOMELESS. PATIENT WILL REMAIN IN ICU DUE TO POLICY FOR SUICIDAL PATIENTS TO REMAIN IN ICU.
--- NOTE | 2016-10-01 10:00 | NUR ---
Nutrition Follow Up: Chart reviewed. Pt is eating 82% meal avg on a regular diet. +BM 10/01/16. Wt gain 2# since admit. I<O. Labs and meds noted. Pt with good po intake at this time. Rec continue current diet. RD following.
[2016-10-01 11:00] VITALS: BP 99/52
[2016-10-01 11:36] LABS: BASOPHILS 0.2 % (0.0-2.0); EOSINOPHILS 1.9 % (0-7); HEMATOCRIT 35.5 % (42.0-54.0); HEMOGLOBIN 11.8 g/dL (13.5-17.5); IMMATURE GRANULOCYTES 0.4 % (0-5); LYMPHOCYTES 31.5 % (15-50); MCH 32.9 pg (26.0-34.0); MCHC 33.2 g/dL (31.0-37.0); MCV 98.9 fL (80.0-100.0); MEAN PLATELET VOLUME 9.8 fL (7.4-10.4); MONOCYTES 9.6 % (2-11); NEUTROPHILS 56.4 % (40-80); RBC 3.59 10x6/uL (4.20-6.10); WBC 5.3 10x3/uL (4.8-10.8)
--- NOTE | 2016-10-01 11:37 | NUR ---
I HAVE SPOKEN WITH MISSAEL HOLMAN IN [facility]. THEY GALEANO NOT HAVE A BED AT THIS TIME BUT ALLOWED ME TO FAX INFORMATION FOR REVIEW. THEY STATED THAT THE WALKER FOR THE PATIENT AMBULATION MAY BE A PROBLEM. WILL AWAIT CALL BACK. I SPOKE WITH THE CALL CENTER FOR [facility], MAYANK. SHE TOOK THE INFORMATION AND STATED THAT SHE WILL SEND THE INFORMATON TO THE MD AND WILL LET ME KNOW IF I NEED TO FAX INFORMATION TO THEM. SHE IS NOT SURE IF THEY HAVE BEDS OR NOT. WILL CALL ME BACK. CM TO FOLLOW.
[2016-10-01 11:41] LABS: PLATELET COUNT 250 10x3/uL (130-400)
[2016-10-01 11:57] LABS: ALBUMIN 2.5 g/dL (3.4-5.0); ALKALINE PHOSPHATASE 42 U/L (46-116); ALT (SGPT) 143 U/L (10-68); BILIRUBIN - TOTAL 1.29 mg/dL (0.2-1.3); CALC OSMOLALITY 277 mosm/kg (275-300); CALCIUM 7.9 mg/dL (8.5-10.1); CARBON DIOXIDE 28.4 mmol/L (21.0-32.0); CHLORIDE - SERUM 105 mmol/L (98-107); CREATININE - SERUM 1.2 mg/dL (0.6-1.3); GLUCOSE 91 mg/dL (74-106); PROTEIN - SERUM 5.9 g/dL (6.4-8.2); SODIUM 140 mmol/L (136-145); UREA NITROGEN 11 mg/dL (7-18); eGFR NON AFRICAN AMERICAN 69 mL/min (90-120)
[2016-10-01 11:58] LABS: POTASSIUM - SERUM 3.3 mmol/L (3.5-5.1)
--- NOTE | 2016-10-01 12:17 | NUR ---
POTASSIUM REPLACED PER ELECTROLYTE PROTOCOL, LAB REDRAWS ENTERED.
[2016-10-01 12:19] LABS: CREATINE KINASE 932 UL (21-232)
--- NOTE | 2016-10-01 14:32 | NUR ---
RECEIVED CALL BACK FROM [facility] AND FROM [facility] IN [place]. NO BEDS AVAILABLE. DR TORRES HAS REQUESTED THAT PSYCH SEE PATIENT TO REEVALUATE HIM. HE STATES HE IS NO LONGER SUICIDAL AND WANTS TO FOLLOW UP WITH COMMUNITY COUNSELING. I HAVE NOT BEEN ABLE TO FIND PLACEMENT FOR PATIENT AND HE DOES NOT HAVE A PLACE TO GO AT DISCHARGE. CM TO FOLLOW.
[2016-10-01 15:00] VITALS: BP 100/60
--- NOTE | 2016-10-01 15:27 | NUR ---
PATIENT INFORMATION FAXED TO [facility]. [phone] TO [place]. SHE WILL REVIEW AND CALL NURSE, GREGORIO IN ICU BACK WITH DECISION. I CONTACTED [facility] ABOUT THEIR PATH PROGRAM. I SPOKE WITH BRANDAN CARROLL AT [phone] AND HE TOOK PATIENT INFO AND WILL GET BACK WITH US. HE SUGGESTS PATIENT GO TO A INPT SUBSTANCE ABUSE PROGRAM WHEN HE IS NO LONGER DEEMED SUICIDAL. PATIENT STATES HE TRIED TO GO TO [place] AND HIS INSURANCE WOULD NOT PAY FOR IT. PATIENT IS WANTING TO LEAVE TOMORROW IF WE ARE NOT ABLE TO GET PLACEMENT FOR HIM. CM TO FOLLOW.
--- NOTE | 2016-10-01 16:22 | NUR ---
CALLED AND SPOKE WITH DR TORRES ABOUT WHAT NICOLE SAID. SHE IS OK WITH THE PATIENT BEING DISCHARGED TO [facility] IF THEY ACCEPT HIM THIS EVENING. RECEIVED ORDERS FOR THE LABS THEY REQUESTED IN THE TIMEFRAME THEY REQUESTED. PATIENT IS AWARE OF THE POSSIBLE DISCHARGE AND IS IN AGREEMENT AT THIS TIME. CHARGE NURSE IS ALSO AWARE.
[2016-10-01 19:39] VITALS: BP 105/56
--- NOTE | 2016-10-01 19:40 | NUR ---
ASSESSMENT COMPLETED. SEE FLOWSHEET. SITTING IN BEDSIDE CHAIR. RT LEG MORE EDMATOUS THAN RT. EDEMA NOTED FROM RT THIGH TO FEET. PALPABLE PULSES X4 EXTREMITIES. LEFT HAND 22G PIV SALINE LOCKED. PLACED ON THE CARDIAC CONTINUOUS MONITOR TO OBTAIN EKG STRIP AND ASSESS RHYTHM. 80BPM IN NORMAL SINUS RHYTHM. SBP 105. O2 SAT 100% ON ROOM AIR. DENIES FEELINGS TO HURT HIMSELF. WANTING TO WASH HIS HAIR. PHELBO AT BEDSIDE TO DRAW RECHECK ELECTROLYTES. REQUESTING COFFEE. REPORTS PAIN TO HIPS, LEGS AND FEET BILATERALLY AT A 8/10 ON NUMBER SCALE AND DESCRIBED "SHARP" PAIN. WILL MONITOR.
[2016-10-01 19:45] VITALS: BP 105/56
[2016-10-01 20:02] LABS: POTASSIUM - SERUM 3.9 mmol/L (3.5-5.1)
--- NOTE | 2016-10-01 20:18 | NUR ---
SPOKE WITH NICOLE CONDON AT [phone] AND GAVE LAB INFORMATION. RONA WILL CALL BACK, SHE IS ON ANOTHER LINE.
--- NOTE | 2016-10-01 21:00 | NUR ---
REPORT CALLED TO ADRIÁN TERAN RN AT [facility]. GOING TO ROOM 805.
--- NOTE | 2016-10-01 21:20 | NUR ---
LEFT HAND PIV REMOVED, HELD PRESSURE AND BANDAID APPLIED. WILL MONITOR.
--- NOTE | 2016-10-01 23:00 | NUR ---
TEMP ASSESSED PER ACTIVITY SPECIALIST. WATCHING TV IN BEDSIDE CHAIR. DENIES NEEDS. WILL MONITOR.
--- NOTE | 2016-10-01 23:42 | NUR ---
PO PAIN PILL GIVEN PER REQUEST FOR PAIN TO LEGS AND HIPS AN 8/10 ON NUMBER SCALE. WILL MONITOR.
--- NOTE | 2016-10-02 11:57 | CN ---
PATIENT NAME:SARAH AGUERO MEDICAL RECORD: [id number] : 68 LOCATION:[id number] ADMIT DATE: 09/23/16 ACCOUNT: [id number] CONSULTING PHYSICIAN: SINDHU CHAMBERS MD REFERRING PHYSICIAN: MARSHA CONKLIN MD DATE OF CONSULTATION: 10/01/2016 Psychiatric Consultation IDENTIFYING DATA: The patient is 45 years old and admitted to the hospital for an overdose. HISTORY OF PRESENT ILLNESS: The patient apparently tried to kill himself by taking an unknown number and type of pills along with some alcohol. Apparently, he was arguing with a girlfriend. He has a history of psychiatric disease and substance abuse. He also has a history of trying to harm himself in the past. He was in the intensive care unit secondary to acute renal injury. I believe that is clearly associated with the overdose. ASSESSMENT: 1. Major depression. 2. Polysubstance abuse. PLAN: The patient was seen by Dr. Jerzy GONZALEZ a week ago. Dr. Jerzy GONZALEZ recommended inpatient care after the patient is medically stabilized. I think that this is appropriate and would not make a different evaluation or call at this point. Dr. Jerzy GONZALEZ will be back on Tuesday and the patient may need to be seen by him if that is not acceptable recommendation. TRANSINT:[id number] Voice Confirmation ID: [id number] DOCUMENT ID: [id number] SINDHU CHAMBERS MD at 1157 CC: [id number] DICTATION DATE: 10/01/16 1425 SUPERVISOR OF OFFICIALS: 10/01/16 1445 DIS IN 10/02/16 [place] [id number]
== END 2016-10-02 00:16 | disposition short-term general hospital (02) | DRG 918 ==
LOC: D.ER 13:18 → OBSVTIME 14:57 → D.ICU 14:57 → OBSVTIME 16:43 → D.ICU 16:43
PROVIDERS: Emergency Medicine; Family Medicine; ADMIT Family Medicine
DX: T50.902A Poisoning by unspecified drugs, medicaments and biological substances, intentional self-harm, initial encounter (principal); M62.82 Rhabdomyolysis; F10.231 Alcohol dependence with withdrawal delirium; N17.9 Acute kidney failure, unspecified; F33.9 Major depressive disorder, recurrent, unspecified; I82.403 Acute embolism and thrombosis of unspecified deep veins of lower extremity, bilateral; R45.851 Suicidal ideations; R00.0 Tachycardia, unspecified; I10 Essential (primary) hypertension; R74.8 Abnormal levels of other serum enzymes; M54.12 Radiculopathy, cervical region; Y90.4 Blood alcohol level of 80-99 mg/100 ml; Z59.0 Homelessness

== ENCOUNTER 2017-05-07 21:38 | Emergency (ER) | payer MEDICAID ==
[2016-09-24 09:36] VITALS: BMI 32.9
[2017-05-07 22:44] LABS: UDS - AMPHET NEGATIVE QUAL (NEGATIVE); UDS - BARB NEGATIVE QUAL (NEGATIVE); UDS - BENZO POSITIVE QUAL (NEGATIVE); UDS - COCAINE NEGATIVE QUAL (NEGATIVE); UDS - OPIATE NEGATIVE QUAL (NEGATIVE); UDS - PCP NEGATIVE QUAL (NEGATIVE); UDS - THC NEGATIVE QUAL (NEGATIVE)
[2017-05-07 22:44] LABS: BASOPHILS 0.1 % (0-2); EOSINOPHILS 3.5 % (0-7); HEMATOCRIT 43.6 % (42.0-54.0); HEMOGLOBIN 14.9 g/dL (13.5-17.5); IMMATURE GRANULOCYTES 0.3 % (0-5); LYMPHOCYTES 36.3 % (15-50); MCH 34.5 pg (26.0-34.0); MCHC 34.2 g/dL (31.0-37.0); MCV 100.9 fL (80.0-100.0); MEAN PLATELET VOLUME 10.8 fL (7.4-10.4); MONOCYTES 6.6 % (2-11); NEUTROPHILS 53.2 % (40-80); RBC 4.32 10x6/uL (4.20-6.10); RDW 13.5 % (11.5-14.5); WBC 7.7 10x3/uL (4.8-10.8)
[2017-05-07 22:45] LABS: PLATELET COUNT 167 10x3/uL (130-400)
[2017-05-07 22:45] LABS: APPEARANCE CLEAR (CLEAR); BILIRUBIN NEGATIVE (NEGATIVE); COLOR STRAW (YELLOW); GLUCOSE NEGATIVE (NEGATIVE); KETONE NEGATIVE (NEGATIVE); NITRITE NEGATIVE (NEGATIVE); PROTEIN NEGATIVE (NEGATIVE); SPECIFIC GRAVITY 1.015 (1.005-1.020); UROBILINOGEN NORMAL (NORMAL)
[2017-05-07 22:56] LABS: ALBUMIN 3.3 g/dL (3.4-5.0); ALKALINE PHOSPHATASE 68 U/L (46-116); ALT (SGPT) 236 U/L (10-68); CALC OSMOLALITY 283 mosm/kg (275-300); CALCIUM 8.6 mg/dL (8.5-10.1); CARBON DIOXIDE 25.3 mmol/L (21.0-32.0); CHLORIDE - SERUM 105 mmol/L (98-107); CREATININE - SERUM 1.1 mg/dL (0.6-1.3); GLUCOSE 135 mg/dL (74-106); POTASSIUM - SERUM 4.2 mmol/L (3.5-5.1); PROTEIN - SERUM 6.8 g/dL (6.4-8.2); SODIUM 141 mmol/L (136-145); UREA NITROGEN 16 mg/dL (7-18); eGFR NON AFRICAN AMERICAN 76 mL/min (90-120)
== END 2017-05-08 07:30 | disposition home or self-care (01) ==
LOC: D.ER 21:38
PROVIDERS: Emergency Medicine
DX: F33.9 Major depressive disorder, recurrent, unspecified (principal); F10.10 Alcohol abuse, uncomplicated; B20 Human immunodeficiency virus [HIV] disease; F17.200 Nicotine dependence, unspecified, uncomplicated

== ENCOUNTER 2019-05-02 19:26 | Emergency (ER) | payer MEDICAID ==
[~2019-05-02] VITALS: Ht 170.2 cm; Wt 104.5 kg
[2019-05-02 20:02] VITALS: Ht 170.2 cm; Wt 104.5 kg
[2019-05-02 20:03] LABS: BASOPHILS 0.3 % (0-2); EOSINOPHILS 0.8 % (0-7); HEMATOCRIT 46.9 % (42.0-54.0); HEMOGLOBIN 15.8 g/dL (13.5-17.5); IMMATURE GRANULOCYTES 0.1 % (0-5); LYMPHOCYTES 49.7 % (15-50); MCH 33.1 pg (26.0-34.0); MCHC 33.7 g/dL (31.0-37.0); MCV 98.1 fL (80.0-100.0); MONOCYTES 12.9 % (2-11); NEUTROPHILS 36.2 % (40-80); RBC 4.78 10x6/uL (4.20-6.10); RDW 14.1 % (11.5-14.5); WBC 7.8 10x3/uL (4.8-10.8)
[2019-05-02 20:04] LABS: PLATELET COUNT 301 10x3/uL (130-400)
[2019-05-02 20:13] LABS: CALC OSMOLALITY 290 mosm/kg (275-300); CALCIUM 8.1 mg/dL (8.5-10.1); CARBON DIOXIDE 26.6 mmol/L (21.0-32.0); CHLORIDE - SERUM 105 mmol/L (98-107); CREATININE - SERUM 1.1 mg/dL (0.6-1.3); GLUCOSE 105 mg/dL (74-106); POTASSIUM - SERUM 3.7 mmol/L (3.5-5.1); SODIUM 145 mmol/L (136-145); UREA NITROGEN 17 mg/dL (7-18); eGFR NON AFRICAN AMERICAN 75 mL/min (90-120)
[2019-05-02 20:35] LABS: ALBUMIN 3.8 g/dL (3.4-5.0); ALKALINE PHOSPHATASE 85 U/L (46-116); ALT (SGPT) 150 U/L (10-68); BILIRUBIN - TOTAL 0.59 mg/dL (0.2-1.3); MAGNESIUM - SERUM 2.3 mg/dL (1.8-2.4); PROTEIN - SERUM 8.2 g/dL (6.4-8.2)
[2019-05-02 21:00] LABS: APPEARANCE CLEAR (CLEAR); BILIRUBIN NEGATIVE (NEGATIVE); COLOR YELLOW (YELLOW); GLUCOSE NEGATIVE (NEGATIVE); KETONE NEGATIVE (NEGATIVE); NITRITE NEGATIVE (NEGATIVE); PROTEIN NEGATIVE (NEGATIVE); UROBILINOGEN NORMAL (NORMAL)
[2019-05-02 21:09] LABS: UDS - AMPHET NEGATIVE QUAL (NEGATIVE); UDS - BARB NEGATIVE QUAL (NEGATIVE); UDS - BENZO NEGATIVE QUAL (NEGATIVE); UDS - COCAINE NEGATIVE QUAL (NEGATIVE); UDS - OPIATE NEGATIVE QUAL (NEGATIVE); UDS - PCP NEGATIVE QUAL (NEGATIVE); UDS - THC NEGATIVE QUAL (NEGATIVE)
[2019-05-03 06:01] VITALS: BP 100/50
--- NOTE | 2019-05-03 12:10 | NUR ---
DR CHAMBERS NOTIFIED AND REVIEWED PT'S BEHAVIOR AND ASSESSMENT RESULTS. PT IS A LOW RISK PER DR CHAMBERS. DR CHAMBERS STATED TO GIVE RESOURCES TO PT AT TIME OF DISCHARGE. NO FURTHER ORDERS AT THIS TIME. RESOURCES REVIEWED WITH PT AND HE VERBALIZED UNDERSTANDING. PT DENIES SUICIDAL THOUGHTS OR DESIRE AT THE PRESENT TIME AND IS ABLE TO VERBALIZE REASONS FOR LIVING.
== END 2019-05-03 02:47 ==
LOC: D.ER 19:26
PROVIDERS: Emergency Medicine
DX: R45.851 Suicidal ideations (principal); F10.129 Alcohol abuse with intoxication, unspecified; Y90.9 Presence of alcohol in blood, level not specified

== ENCOUNTER 2019-05-16 11:04 | Emergency (ER) | payer MEDICAID ==
[~2019-05-16] VITALS: Ht 170.2 cm; Wt 90.9 kg
[2019-05-16 11:12] VITALS: BP 114/97; Ht 170.2 cm; Wt 90.9 kg
[2019-05-16 11:36] LABS: BASOPHILS 0.1 % (0-2); EOSINOPHILS 0.1 % (0-7); HEMATOCRIT 47.5 % (42.0-54.0); HEMOGLOBIN 16.4 g/dL (13.5-17.5); IMMATURE GRANULOCYTES 0.3 % (0-5); LYMPHOCYTES 19.4 % (15-50); MCH 33.4 pg (26.0-34.0); MCHC 34.5 g/dL (31.0-37.0); MCV 96.7 fL (80.0-100.0); MONOCYTES 10.1 % (2-11); RBC 4.91 10x6/uL (4.20-6.10)
[2019-05-16 11:53] LABS: PLATELET COUNT 236 10x3/uL (130-400)
[2019-05-16 11:55] LABS: CALC OSMOLALITY 274 mosm/kg (275-300); CALCIUM 8.9 mg/dL (8.5-10.1); CARBON DIOXIDE 26.1 mmol/L (21.0-32.0); CHLORIDE - SERUM 101 mmol/L (98-107); GLUCOSE 87 mg/dL (74-106); POTASSIUM - SERUM 3.9 mmol/L (3.5-5.1); SODIUM 139 mmol/L (136-145); UREA NITROGEN 8 mg/dL (7-18); eGFR NON AFRICAN AMERICAN 84 mL/min (90-120)
--- NOTE | 2019-05-16 12:07 | NUR ---
DR. CHAMBERS NOTIFIED AD SITTER ORDERED. SITTER AT BEDSIDE. NOTIFIED CHARGE NURSE AND ATTENDING IN REGARDS TO ASSESSMENT FINDINGS. RESOURCES GIVEN TO PT AND SAFETY PLAN INITIATED. PT REPORTS TO NURSE " I TRIED TO HANG MYSELF THIS MORNING, BUT MY FRIENDS STOPPED ME."
[2019-05-16 12:09] LABS: INR 1.07 (0.85-1.17); PROTIME 13.4 SECONDS (11.6-15.0)
[2019-05-16 12:10] LABS: ALBUMIN 3.7 g/dL (3.4-5.0); ALKALINE PHOSPHATASE 81 U/L (46-116); ALT (SGPT) 134 U/L (10-68); BILIRUBIN - TOTAL 1.28 mg/dL (0.2-1.3); CKMB 2.1 U/L (0.0-3.6); CREATINE KINASE 277 UL (21-232); MAGNESIUM - SERUM 1.8 mg/dL (1.8-2.4); PROTEIN - SERUM 7.8 g/dL (6.4-8.2); TROPONIN-I < 0.017 ng/mL (0.000-0.060)
[2019-05-16 12:52] LABS: UDS - AMPHET NEGATIVE QUAL (NEGATIVE); UDS - BARB NEGATIVE QUAL (NEGATIVE); UDS - BENZO NEGATIVE QUAL (NEGATIVE); UDS - COCAINE NEGATIVE QUAL (NEGATIVE); UDS - OPIATE NEGATIVE QUAL (NEGATIVE); UDS - PCP NEGATIVE QUAL (NEGATIVE); UDS - THC NEGATIVE QUAL (NEGATIVE)
== END 2019-05-16 17:33 ==
LOC: D.ER 11:04
PROVIDERS: Family Medicine
DX: R45.851 Suicidal ideations (principal); R07.9 Chest pain, unspecified; F32.9 Major depressive disorder, single episode, unspecified; I25.10 Atherosclerotic heart disease of native coronary artery without angina pectoris; B19.20 Unspecified viral hepatitis C without hepatic coma; B20 Human immunodeficiency virus [HIV] disease; M54.9 Dorsalgia, unspecified

== ENCOUNTER 2019-06-19 00:41 | Emergency (ER) | payer MEDICAID ==
[~2019-06-19] VITALS: Ht 175.3 cm; Wt 100.0 kg
[2019-06-19 00:56] VITALS: Ht 175.3 cm; Wt 100.0 kg
[2019-06-19 01:08] LABS: BASOPHILS 0.2 % (0-2); EOSINOPHILS 1.9 % (0-7); HEMATOCRIT 44.4 % (42.0-54.0); HEMOGLOBIN 15.1 g/dL (13.5-17.5); IMMATURE GRANULOCYTES 0.3 % (0-5); LYMPHOCYTES 33.2 % (15-50); MCH 32.5 pg (26.0-34.0); MCV 95.5 fL (80.0-100.0); MEAN PLATELET VOLUME 9.6 fL (7.4-10.4); MONOCYTES 9.9 % (2-11); NEUTROPHILS 54.5 % (40-80); PLATELET COUNT 292 10x3/uL (130-400); RBC 4.65 10x6/uL (4.20-6.10); RDW 13.5 % (11.5-14.5)
[2019-06-19 01:10] LABS: APPEARANCE CLEAR (CLEAR); BILIRUBIN NEGATIVE (NEGATIVE); COLOR YELLOW (YELLOW); GLUCOSE NEGATIVE (NEGATIVE); KETONE NEGATIVE (NEGATIVE); NITRITE NEGATIVE (NEGATIVE); PROTEIN TRACE mg/dL (NEGATIVE); SPECIFIC GRAVITY 1.025 (1.005-1.020); UROBILINOGEN NORMAL (NORMAL)
[2019-06-19 01:12] LABS: UDS - AMPHET NEGATIVE QUAL (NEGATIVE); UDS - BARB NEGATIVE QUAL (NEGATIVE); UDS - BENZO NEGATIVE QUAL (NEGATIVE); UDS - COCAINE NEGATIVE QUAL (NEGATIVE); UDS - OPIATE NEGATIVE QUAL (NEGATIVE); UDS - PCP NEGATIVE QUAL (NEGATIVE); UDS - THC NEGATIVE QUAL (NEGATIVE)
[2019-06-19 01:17] LABS: CALC OSMOLALITY 275 mosm/kg (275-300); CALCIUM 8.1 mg/dL (8.5-10.1); CHLORIDE - SERUM 101 mmol/L (98-107); CREATININE - SERUM 1.1 mg/dL (0.6-1.3); GLUCOSE 101 mg/dL (74-106); POTASSIUM - SERUM 3.7 mmol/L (3.5-5.1); SODIUM 138 mmol/L (136-145); UREA NITROGEN 12 mg/dL (7-18); eGFR NON AFRICAN AMERICAN 75 mL/min (90-120)
[2019-06-19 01:24] LABS: ALBUMIN 3.8 g/dL (3.4-5.0); ALKALINE PHOSPHATASE 73 U/L (46-116); ALT (SGPT) 40 U/L (10-68); BILIRUBIN - TOTAL 0.63 mg/dL (0.2-1.3); MAGNESIUM - SERUM 1.9 mg/dL (1.8-2.4)
--- NOTE | 2019-06-19 01:34 | NUR ---
DOCTOR TRISH NOTIFIED AND SITTER ORDERED. SITTER AT BEDSIDE. NOTIFIED CHARGE NURSE AND ATTENDING IN REGARDS TO ASSESSMENT FINDINGS. RESOURCES GIVEN AND REVIEWED WITH PATIENT. PATIENT VERBALIZES UNDERSTANDING. SAFETY PLAN INIATED.
[2019-06-19 07:30] VITALS: BP 149/70
== END 2019-06-19 11:44 ==
LOC: D.ER 00:41
PROVIDERS: Family Medicine
DX: R45.851 Suicidal ideations (principal); I25.10 Atherosclerotic heart disease of native coronary artery without angina pectoris; B20 Human immunodeficiency virus [HIV] disease